=== PATIENT | female | born 1945 | race Two or more races ===

== ENCOUNTER 2017-12-17 07:49 | Outpatient (CLI) | payer OTHER ==
[~2017-12-17 07:49] MED LIST: CLONAZEPAM1 MG PO; DOCUSATE SODIU100 MG PO; NEURONTIN300 MG; PERCOCET 5/3251 TAB PO; PROTONIX40 MG
== END 2017-12-17 07:52 | disposition home or self-care (01) ==
LOC: NUCLEAR 07:49
DX: M19.90 Unspecified osteoarthritis, unspecified site (principal)
CPT/HCPCS: 78306; A9503

== ENCOUNTER 2017-12-17 08:05 | Outpatient (CLI) | payer OTHER | END 2017-12-17 15:59 | disposition home or self-care (01) | LOC: TOM 08:05 | DX: R41.3 Other amnesia (principal); G31.84 Mild cognitive impairment of uncertain or unknown etiology ==

== ENCOUNTER 2018-06-22 09:17 | Outpatient (CLI) | payer OTHER | END 2018-06-22 17:00 | disposition home or self-care (01) | LOC: SONOGRAMA 09:17 → MAMO-SONO 11:15 → SONOGRAMA 17:00 | DX: R42 Dizziness and giddiness (principal); K57.30 Diverticulosis of large intestine without perforation or abscess without bleeding ==

== ENCOUNTER 2018-10-27 08:20 | Outpatient (CLI) | payer OTHER | END 2018-10-27 08:27 | disposition home or self-care (01) | LOC: TOM 08:20 | DX: J37.0 Chronic laryngitis (principal) ==

== ENCOUNTER 2018-12-23 09:28 | Outpatient (CLI) | payer OTHER ==
[2018-12-23] MEDS ORDERED: FLONASE16 GM NASAL (11:18)
== END 2018-12-23 11:21 | disposition home or self-care (01) ==
LOC: OFIC 805 09:28
DX: J31.0 Chronic rhinitis (principal); J37.0 Chronic laryngitis; R49.8 Other voice and resonance disorders; R05 Cough; J32.4 Chronic pansinusitis

== ENCOUNTER → 2019-04-19 | Outpatient (CLI) | payer OTHER ==
[~2019-04-19] MED LIST changes: +FLONASE16 GM NASAL
== END | disposition home or self-care (01) ==
LOC: RAD 08:44 → MAMO-SONO 11:15
DX: G45.8 Other transient cerebral ischemic attacks and related syndromes (principal); I67.89 Other cerebrovascular disease; R41.3 Other amnesia; N60.22 Fibroadenosis of left breast; N60.21 Fibroadenosis of right breast; S59.902A Unspecified injury of left elbow, initial encounter; Z87.898 Personal history of other specified conditions; Z12.31 Encounter for screening mammogram for malignant neoplasm of breast; Z09 Encounter for follow-up examination after completed treatment for conditions other than malignant neoplasm
CPT/HCPCS: 70553; 76641; 77067; 76881; A9579

== ENCOUNTER 2019-07-05 10:22 | Outpatient (CLI) | payer OTHER | END 2019-07-05 11:00 | disposition home or self-care (01) | LOC: NUCLEAR 10:22 | DX: M79.622 Pain in left upper arm (principal); M79.621 Pain in right upper arm ==

== ENCOUNTER → 2019-07-05 | Outpatient (CLI) | payer OTHER | END | disposition home or self-care (01) | LOC: RAD 09:26 | DX: M06.862 Other specified rheumatoid arthritis, left knee (principal) ==

== ENCOUNTER 2019-07-06 09:20 | Outpatient (CLI) | payer OTHER | END 2019-07-06 09:45 | disposition home or self-care (01) | LOC: NUCLEAR 09:20 | DX: I73.9 Peripheral vascular disease, unspecified (principal) ==

== ENCOUNTER 2020-03-21 08:40 | Outpatient (CLI) | payer OTHER | END 2020-03-21 08:46 | disposition home or self-care (01) | LOC: LAB 08:40 | PROVIDERS: ATTEND General Practice | DX: E83.32 Hereditary vitamin D-dependent rickets (type 1) (type 2) (principal); E06.3 Autoimmune thyroiditis; N30.00 Acute cystitis without hematuria; I11.9 Hypertensive heart disease without heart failure; E11.22 Type 2 diabetes mellitus with diabetic chronic kidney disease; Z12.11 Encounter for screening for malignant neoplasm of colon; E11.42 Type 2 diabetes mellitus with diabetic polyneuropathy; E78.2 Mixed hyperlipidemia ==

== ENCOUNTER 2020-04-06 10:17 | Outpatient (CLI) | payer OTHER | END 2020-04-06 10:19 | disposition home or self-care (01) | LOC: TOM 10:17 | PROVIDERS: ATTEND General Practice | DX: K57.30 Diverticulosis of large intestine without perforation or abscess without bleeding (principal) ==

== ENCOUNTER 2020-08-08 15:00 | Outpatient (CLI) | payer OTHER | END 2020-08-08 15:55 | disposition home or self-care (01) | LOC: PPH VACUNA 15:00 | PROVIDERS: ATTEND Emergency Medicine Pediatric Emergency Medicine | DX: Z23 Encounter for immunization (principal) ==

== ENCOUNTER → 2020-08-29 08:00 | Outpatient (CLI) | payer OTHER | END | disposition home or self-care (01) | LOC: PPH VACUNA 08:00 | PROVIDERS: ATTEND Emergency Medicine Pediatric Emergency Medicine | DX: Z23 Encounter for immunization (principal) ==

== ENCOUNTER 2021-01-17 08:46 | Outpatient (CLI) | payer OTHER | END 2021-01-17 08:58 | disposition home or self-care (01) | LOC: RAD 08:46 | PROVIDERS: ATTEND Psychiatry & Neurology Pain Medicine | DX: M19.90 Unspecified osteoarthritis, unspecified site (principal); R25.2 Cramp and spasm; M54.2 Cervicalgia; M25.512 Pain in left shoulder; R06.6 Hiccough ==

== ENCOUNTER → 2021-03-14 08:51 | Outpatient (CLI) | payer OTHER | END | disposition home or self-care (01) | LOC: LAB 08:51 | PROVIDERS: ATTEND Internal Medicine Hematology & Oncology | DX: E03.8 Other specified hypothyroidism (principal); D50.8 Other iron deficiency anemias; R79.89 Other specified abnormal findings of blood chemistry; I10 Essential (primary) hypertension; R74.02 Elevation of levels of lactic acid dehydrogenase [LDH]; K29.60 Other gastritis without bleeding; K76.89 Other specified diseases of liver; D51.1 Vitamin B12 deficiency anemia due to selective vitamin B12 malabsorption with proteinuria; D51.0 Vitamin B12 deficiency anemia due to intrinsic factor deficiency; E06.3 Autoimmune thyroiditis; C56.9 Malignant neoplasm of unspecified ovary; R97.8 Other abnormal tumor markers; R97.1 Elevated cancer antigen 125 [CA 125]; R97.0 Elevated carcinoembryonic antigen [CEA]; D75.89 Other specified diseases of blood and blood-forming organs; F33.8 Other recurrent depressive disorders; K29.40 Chronic atrophic gastritis without bleeding ==

== ENCOUNTER 2021-03-14 09:41 | Outpatient (CLI) | payer OTHER | END 2021-03-14 09:49 | disposition home or self-care (01) | LOC: SONOGRAMA 09:41 → MAMO-SONO 10:30 | PROVIDERS: ATTEND Internal Medicine Hematology & Oncology | DX: D75.89 Other specified diseases of blood and blood-forming organs (principal); F33.8 Other recurrent depressive disorders; K29.40 Chronic atrophic gastritis without bleeding; K29.70 Gastritis, unspecified, without bleeding; E04.2 Nontoxic multinodular goiter ==

== ENCOUNTER 2021-04-12 08:38 | Outpatient (CLI) | payer OTHER | END 2021-04-12 08:47 | disposition home or self-care (01) | LOC: TOM 08:38 | PROVIDERS: ATTEND Psychiatry & Neurology Pain Medicine | DX: K57.90 Diverticulosis of intestine, part unspecified, without perforation or abscess without bleeding (principal); K40.20 Bilateral inguinal hernia, without obstruction or gangrene, not specified as recurrent; K21.00 Gastro-esophageal reflux disease with esophagitis, without bleeding; R10.84 Generalized abdominal pain; R06.6 Hiccough | CPT/HCPCS: 74178; Q9965 ==

== ENCOUNTER 2021-05-01 08:00 | Outpatient (CLI) | payer OTHER | END 2021-05-01 08:30 | disposition home or self-care (01) | LOC: PPH VACUNA 08:00 | PROVIDERS: ATTEND Emergency Medicine Pediatric Emergency Medicine | DX: Z23 Encounter for immunization (principal) ==

== ENCOUNTER 2021-06-06 08:47 | Outpatient (CLI) | payer OTHER | END 2021-06-06 09:01 | disposition home or self-care (01) | LOC: MAMO-SONO 08:47 | PROVIDERS: ATTEND General Practice | DX: N64.4 Mastodynia (principal); N60.29 Fibroadenosis of unspecified breast; Z12.31 Encounter for screening mammogram for malignant neoplasm of breast; Z80.8 Family history of malignant neoplasm of other organs or systems ==

== ENCOUNTER 2021-06-27 08:20 | Outpatient (CLI) | payer OTHER | END 2021-06-27 08:22 | disposition home or self-care (01) | LOC: LAB 08:20 | PROVIDERS: ATTEND Internal Medicine Hematology & Oncology | DX: D50.8 Other iron deficiency anemias (principal); R79.89 Other specified abnormal findings of blood chemistry; I10 Essential (primary) hypertension; R74.02 Elevation of levels of lactic acid dehydrogenase [LDH]; K76.89 Other specified diseases of liver; D63.8 Anemia in other chronic diseases classified elsewhere; D55.0 Anemia due to glucose-6-phosphate dehydrogenase [G6PD] deficiency; D51.8 Other vitamin B12 deficiency anemias; D51.1 Vitamin B12 deficiency anemia due to selective vitamin B12 malabsorption with proteinuria; D51.0 Vitamin B12 deficiency anemia due to intrinsic factor deficiency; E03.8 Other specified hypothyroidism; D75.89 Other specified diseases of blood and blood-forming organs; F33.8 Other recurrent depressive disorders; K29.40 Chronic atrophic gastritis without bleeding; K29.70 Gastritis, unspecified, without bleeding ==

== ENCOUNTER 2021-08-31 08:36 | Outpatient (CLI) | payer OTHER | END 2021-08-31 08:42 | disposition home or self-care (01) | LOC: LAB 08:36 | PROVIDERS: ATTEND General Practice | DX: E83.32 Hereditary vitamin D-dependent rickets (type 1) (type 2) (principal); E06.3 Autoimmune thyroiditis; N30.00 Acute cystitis without hematuria; I11.9 Hypertensive heart disease without heart failure; E11.22 Type 2 diabetes mellitus with diabetic chronic kidney disease; Z12.11 Encounter for screening for malignant neoplasm of colon; E11.42 Type 2 diabetes mellitus with diabetic polyneuropathy; E78.2 Mixed hyperlipidemia ==

== ENCOUNTER 2021-08-31 09:53 | Outpatient (CLI) | payer OTHER | END 2021-08-31 10:01 | disposition home or self-care (01) | LOC: RAD 09:53 | PROVIDERS: ATTEND General Practice | DX: M15.0 Primary generalized (osteo)arthritis (principal); J44.9 Chronic obstructive pulmonary disease, unspecified ==

== ENCOUNTER 2021-12-28 10:02 | Outpatient (CLI) | payer OTHER | END 2021-12-28 10:09 | disposition home or self-care (01) | LOC: LAB 10:02 | PROVIDERS: ATTEND Internal Medicine Hematology & Oncology | DX: D50.8 Other iron deficiency anemias (principal); R79.9 Abnormal finding of blood chemistry, unspecified; I10 Essential (primary) hypertension; R74.02 Elevation of levels of lactic acid dehydrogenase [LDH]; K76.89 Other specified diseases of liver; D51.8 Other vitamin B12 deficiency anemias; E03.8 Other specified hypothyroidism; R97.0 Elevated carcinoembryonic antigen [CEA]; R97.8 Other abnormal tumor markers; D51.0 Vitamin B12 deficiency anemia due to intrinsic factor deficiency; D51.1 Vitamin B12 deficiency anemia due to selective vitamin B12 malabsorption with proteinuria; D75.89 Other specified diseases of blood and blood-forming organs; F33.9 Major depressive disorder, recurrent, unspecified; K29.40 Chronic atrophic gastritis without bleeding; K29.70 Gastritis, unspecified, without bleeding ==

== ENCOUNTER 2022-01-23 05:47 | Day surgery (SDC) | payer OTHER ==
[~2022-01-23 05:47] MED LIST changes: +ADULT LOW DOSE81 M1 PO; +VITAMIN B12
[2022-01-23] MEDS ORDERED: POLY119PG PO (10:20)
[2022-01-23] MEDS ORDERED: ULTRACET PO (10:20)
== END 2022-01-23 13:35 | disposition home or self-care (01) ==
LOC: CIR.AMB 05:47
PROVIDERS: ATTEND Surgery
DX: K40.20 Bilateral inguinal hernia, without obstruction or gangrene, not specified as recurrent (principal); Z20.822 Contact with and (suspected) exposure to COVID-19; G62.9 Polyneuropathy, unspecified; F41.0 Panic disorder [episodic paroxysmal anxiety]; M19.90 Unspecified osteoarthritis, unspecified site; K21.9 Gastro-esophageal reflux disease without esophagitis
CPT/HCPCS: 49650; C1781

== ENCOUNTER 2022-03-06 10:46 | Outpatient (CLI) | payer OTHER ==
[~2022-03-06 10:46] MED LIST changes: +POLY119PG PO; +ULTRACET PO
== END 2022-03-06 10:56 | disposition home or self-care (01) ==
LOC: MRI 10:46
PROVIDERS: ATTEND Psychiatry & Neurology Pain Medicine
DX: M25.561 Pain in right knee (principal); M25.562 Pain in left knee; M54.51 Vertebrogenic low back pain; M51.36 Other intervertebral disc degeneration, lumbar region; M54.10 Radiculopathy, site unspecified
CPT/HCPCS: 72148

== ENCOUNTER 2022-03-22 08:03 | Outpatient (CLI) | payer OTHER | END 2022-03-22 08:05 | disposition home or self-care (01) | LOC: NUCLEAR 08:03 | PROVIDERS: ATTEND Psychiatry & Neurology Pain Medicine | DX: I73.9 Peripheral vascular disease, unspecified (principal); I83.90 Asymptomatic varicose veins of unspecified lower extremity; M79.89 Other specified soft tissue disorders; R25.2 Cramp and spasm ==

== ENCOUNTER 2022-03-25 08:27 | Outpatient (CLI) | payer OTHER | END 2022-03-25 08:28 | disposition home or self-care (01) | LOC: NUCLEAR 08:27 | PROVIDERS: ATTEND Psychiatry & Neurology Pain Medicine | DX: I73.9 Peripheral vascular disease, unspecified (principal); I83.90 Asymptomatic varicose veins of unspecified lower extremity; M79.89 Other specified soft tissue disorders; R25.2 Cramp and spasm ==

== ENCOUNTER 2022-05-02 13:25 | Emergency (ER) | payer OTHER ==
[~2022-05-02] VITALS: Ht 160 cm; Wt 73.9 kg
== END 2022-05-02 17:48 | disposition home or self-care (01) ==
LOC: ER 13:25
DX: S00.83XA Contusion of other part of head, initial encounter (principal); S50.02XA Contusion of left elbow, initial encounter; W18.39XA Other fall on same level, initial encounter; Y93.89 Activity, other specified; Y92.012 Bathroom of single-family (private) house as the place of occurrence of the external cause; Y99.9 Unspecified external cause status; M12.522 Traumatic arthropathy, left elbow; I10 Essential (primary) hypertension

== ENCOUNTER 2022-06-24 08:49 | Outpatient (CLI) | payer OTHER | END 2022-06-24 08:51 | disposition home or self-care (01) | LOC: LAB 08:49 | PROVIDERS: ATTEND Internal Medicine Hematology & Oncology | DX: I11.9 Hypertensive heart disease without heart failure (principal); E06.3 Autoimmune thyroiditis; N30.00 Acute cystitis without hematuria; E78.2 Mixed hyperlipidemia; D50.8 Other iron deficiency anemias; R79.9 Abnormal finding of blood chemistry, unspecified; R74.02 Elevation of levels of lactic acid dehydrogenase [LDH]; K76.89 Other specified diseases of liver; D51.8 Other vitamin B12 deficiency anemias; D51.1 Vitamin B12 deficiency anemia due to selective vitamin B12 malabsorption with proteinuria; D51.0 Vitamin B12 deficiency anemia due to intrinsic factor deficiency; E03.8 Other specified hypothyroidism; R97.0 Elevated carcinoembryonic antigen [CEA]; R97.8 Other abnormal tumor markers; D75.89 Other specified diseases of blood and blood-forming organs; F33.9 Major depressive disorder, recurrent, unspecified; K29.40 Chronic atrophic gastritis without bleeding; K29.70 Gastritis, unspecified, without bleeding ==

== ENCOUNTER → 2022-06-24 | Outpatient (CLI) | payer OTHER | END | disposition home or self-care (01) | LOC: MAMO-SONO 10:17 | PROVIDERS: ATTEND Obstetrics & Gynecology Obstetrics | DX: N64.4 Mastodynia (principal) ==

== ENCOUNTER 2022-07-04 13:11 | Outpatient (CLI) | payer OTHER | END 2022-07-04 13:21 | disposition home or self-care (01) | LOC: PPH VACUNA 13:11 | PROVIDERS: ATTEND Emergency Medicine Pediatric Emergency Medicine | DX: Z23 Encounter for immunization (principal) ==

== ENCOUNTER 2022-08-06 07:09 | Outpatient (CLI) | payer OTHER | END 2022-08-06 07:10 | disposition home or self-care (01) | LOC: NUCLEAR 07:09 | PROVIDERS: ATTEND Internal Medicine Cardiovascular Disease | DX: I25.10 Atherosclerotic heart disease of native coronary artery without angina pectoris (principal) | CPT/HCPCS: 78452; 93017; A9500; J0153 ==

== ENCOUNTER 2022-08-10 15:33 | Emergency (ER) | payer OTHER ==
[~2022-08-10] VITALS: Ht 160 cm; Wt 71.2 kg
== END 2022-08-10 19:47 | disposition home or self-care (01) ==
LOC: ER 15:33
DX: M54.50 Low back pain, unspecified (principal)

== ENCOUNTER → 2022-08-12 | Outpatient (CLI) | payer OTHER | END | disposition home or self-care (01) | LOC: TOM 08:58 | PROVIDERS: ATTEND Urology | DX: R10.12 Left upper quadrant pain (principal); R10.32 Left lower quadrant pain ==

== ENCOUNTER 2022-09-02 09:57 | Outpatient (CLI) | payer OTHER | END 2022-09-02 10:02 | disposition home or self-care (01) | LOC: MRI 09:57 | PROVIDERS: ATTEND General Practice | DX: M51.06 Intervertebral disc disorders with myelopathy, lumbar region (principal) | CPT/HCPCS: 72148 ==

== ENCOUNTER 2022-10-11 07:23 | Outpatient (CLI) | payer OTHER | END 2022-10-11 14:13 | disposition home or self-care (01) | LOC: LAB 07:23 | PROVIDERS: ATTEND General Practice | DX: Z12.11 Encounter for screening for malignant neoplasm of colon (principal); E11.22 Type 2 diabetes mellitus with diabetic chronic kidney disease; I11.9 Hypertensive heart disease without heart failure; E06.3 Autoimmune thyroiditis; N30.00 Acute cystitis without hematuria; E83.32 Hereditary vitamin D-dependent rickets (type 1) (type 2); M81.0 Age-related osteoporosis without current pathological fracture; E78.2 Mixed hyperlipidemia ==

== ENCOUNTER 2022-11-13 09:24 | Outpatient (CLI) | payer OTHER | END 2022-11-13 09:28 | disposition home or self-care (01) | LOC: LAB 09:24 | PROVIDERS: ATTEND Internal Medicine Geriatric Medicine | DX: N30.00 Acute cystitis without hematuria (principal) ==

== ENCOUNTER 2022-12-03 08:26 | Outpatient (CLI) | payer OTHER | END 2022-12-03 09:52 | disposition home or self-care (01) | LOC: MRI 08:26 | PROVIDERS: ATTEND Internal Medicine Geriatric Medicine | DX: R10.9 Unspecified abdominal pain (principal); R10.2 Pelvic and perineal pain; M25.552 Pain in left hip | CPT/HCPCS: 72197; 73502; 74183; Q9965; 72196; 74182 ==

== ENCOUNTER → 2022-12-03 08:52 | Outpatient (CLI) | payer OTHER | END | disposition home or self-care (01) | LOC: LAB 08:52 | PROVIDERS: ATTEND Radiology Diagnostic Radiology | DX: R10.9 Unspecified abdominal pain (principal) ==

== ENCOUNTER 2022-12-27 08:48 | Outpatient (CLI) | payer OTHER | END 2022-12-27 08:53 | disposition home or self-care (01) | LOC: LAB 08:48 | PROVIDERS: ATTEND Internal Medicine Hematology & Oncology | DX: D50.8 Other iron deficiency anemias (principal); R79.9 Abnormal finding of blood chemistry, unspecified; I10 Essential (primary) hypertension; R74.02 Elevation of levels of lactic acid dehydrogenase [LDH]; K76.89 Other specified diseases of liver; D51.1 Vitamin B12 deficiency anemia due to selective vitamin B12 malabsorption with proteinuria; D51.0 Vitamin B12 deficiency anemia due to intrinsic factor deficiency; E03.8 Other specified hypothyroidism; R97.0 Elevated carcinoembryonic antigen [CEA]; R97.8 Other abnormal tumor markers; E55.9 Vitamin D deficiency, unspecified; D75.89 Other specified diseases of blood and blood-forming organs; F33.9 Major depressive disorder, recurrent, unspecified; K29.40 Chronic atrophic gastritis without bleeding; K29.70 Gastritis, unspecified, without bleeding ==

== ENCOUNTER 2023-01-20 09:01 | Outpatient (CLI) | payer OTHER | END 2023-01-20 09:23 | disposition home or self-care (01) | LOC: MRI 09:01 | PROVIDERS: ATTEND Psychiatry & Neurology Pain Medicine | DX: M54.6 Pain in thoracic spine (principal); M54.10 Radiculopathy, site unspecified; M81.0 Age-related osteoporosis without current pathological fracture; R25.2 Cramp and spasm; M50.30 Other cervical disc degeneration, unspecified cervical region | CPT/HCPCS: 72146 ==

== ENCOUNTER 2023-03-06 08:10 | Outpatient (CLI) | payer OTHER | END 2023-03-06 08:20 | disposition home or self-care (01) | LOC: LAB 08:10 | PROVIDERS: ATTEND Anesthesiology | DX: Z01.812 Encounter for preprocedural laboratory examination (principal); S32.002A Unstable burst fracture of unspecified lumbar vertebra, initial encounter for closed fracture; M54.17 Radiculopathy, lumbosacral region; M54.6 Pain in thoracic spine ==

== ENCOUNTER → 2023-06-26 08:24 | Outpatient (CLI) | payer OTHER ==
[2023-06-26 09:27] LABS: HEMATOCRIT 38.3 % (36.0-45.00); HEMOGLOBIN 13.1 g/dL (12.0-15.00); MEAN CELL VOLUME 95.7 fL (80.00-100.00); MEAN CORPUSCULAR HEMOGLOBIN 32.7 pg (27.00-32.0); MEAN CORPUSCULAR HGB CONC 34.2 g/dl (32.0-36.0); PLATELET COUNT 176 K/uL (150-450); RED CELL DISTRIBUTION WIDTH 13.7 % (11.5-14.5)
[2023-06-26 09:50] LABS: % SATURACION 9.7 % (15-50); ALBUMIN 3.6 gm/dL (3.4-5.0); BILIRUBIN TOTAL 0.46 mg/dL (0.3-1.2); CALCIUM 8.6 mg/dL (8.5-10.1); CREATININE SERUM 0.62 mg/dL (0.55-1.02); FERRITIN 217.8 NG/ML (8-252); GFR 93.34; GLOBULINA 3.6 G/DL (2.4-3.5); POTASSIUM 4.08 mEq/L (3.5-5.1); TOTAL PROTEIN 7.2 gm/dL (6.4-8.2); TSH 1.75 uIU/mL (0.358-3.74)
[2023-06-26 10:04] LABS: PH,URINE 6.5 (5.0-8.0); URINE APPEARANCE Clear; URINE BILIRRUBIN Negative (NEGATIVE); URINE BLOOD Negative; URINE COLOR Yellow; URINE GLUCOSE Negative (NEGATIVE); URINE LEUKOCYTE Trace; URINE NITRATE Negative; URINE PROTEIN Negative (NEGATIVE); URINE UROBILINOGEN 0.2 E.U./dl
[2023-06-26 10:05] LABS: URINE EPITHELIAL CELLS 3.5 uL (0.0-38.8); URINE RBC 11.2 uL (0.0-20.8); URINE WBC 2.4 uL (0.0-23.2)
[2023-06-26 10:23] LABS: FOLIC ACID > 20.00 ng/ml (4.78-20)
[2023-06-26 15:24] LABS: MANUAL PLATELET COUNT 254
[2023-06-26 15:26] LABS: PLATELET ESTIMATE NORMAL (NORMAL)
== END | disposition home or self-care (01) ==
LOC: LAB 08:24
PROVIDERS: ATTEND Internal Medicine Hematology & Oncology
DX: D50.8 Other iron deficiency anemias (principal); R79.9 Abnormal finding of blood chemistry, unspecified; I10 Essential (primary) hypertension; R74.02 Elevation of levels of lactic acid dehydrogenase [LDH]; K76.89 Other specified diseases of liver; E55.9 Vitamin D deficiency, unspecified; D51.1 Vitamin B12 deficiency anemia due to selective vitamin B12 malabsorption with proteinuria; D51.0 Vitamin B12 deficiency anemia due to intrinsic factor deficiency; E03.8 Other specified hypothyroidism; R97.0 Elevated carcinoembryonic antigen [CEA]; R97.8 Other abnormal tumor markers; N39.0 Urinary tract infection, site not specified; D75.89 Other specified diseases of blood and blood-forming organs; F33.9 Major depressive disorder, recurrent, unspecified; K29.40 Chronic atrophic gastritis without bleeding; K29.70 Gastritis, unspecified, without bleeding

== ENCOUNTER 2023-07-07 07:03 | Outpatient (CLI) | payer OTHER ==
[2023-07-07 08:26] LABS: ALBUMIN 3.6 gm/dL (3.4-5.0); BILIRUBIN TOTAL 0.37 mg/dL (0.3-1.2); CREATININE SERUM 0.63 mg/dL (0.55-1.02); GFR 91.63; GLOBULINA 3.2 G/DL (2.4-3.5); POTASSIUM 4.16 mEq/L (3.5-5.1); TOTAL PROTEIN 6.8 gm/dL (6.4-8.2)
== END 2023-07-07 07:10 | disposition home or self-care (01) ==
LOC: LAB 07:03
PROVIDERS: ATTEND Internal Medicine Rheumatology
DX: M81.0 Age-related osteoporosis without current pathological fracture (principal)

== ENCOUNTER 2023-07-08 08:06 | Outpatient (CLI) | payer OTHER ==
[2023-07-08 08:37] LABS: URINE APPEARANCE Clear; URINE BILIRRUBIN Negative (NEGATIVE); URINE BLOOD Negative; URINE COLOR Yellow; URINE GLUCOSE Negative (NEGATIVE); URINE LEUKOCYTE Negative; URINE NITRATE Negative; URINE PROTEIN Negative (NEGATIVE); URINE UROBILINOGEN 0.2 E.U./dl
[2023-07-08 08:41] LABS: URINE BACTERIA 6.2 uL (0.0-1933); URINE EPITHELIAL CELLS 3.6 uL (0.0-38.8); URINE WBC 3.5 uL (0.0-23.2)
[2023-07-08 08:48] LABS: ob NEGATIVE (NEGATIVE)
[2023-07-08 09:31] LABS: HEMATOCRIT 37.2 % (36.0-45.00); HEMOGLOBIN 12.6 g/dL (12.0-15.00); MEAN CORPUSCULAR HEMOGLOBIN 32.5 pg (27.00-32.0); MEAN CORPUSCULAR HGB CONC 33.9 g/dl (32.0-36.0); PLATELET COUNT 264 K/uL (150-450); RED BLOOD COUNT 3.87 M/uL (4.00-6.00); RED CELL DISTRIBUTION WIDTH 14.1 % (11.5-14.5)
[2023-07-08 09:57] LABS: CALCIUM 8.8 mg/dL (8.5-10.1); CREATININE SERUM 0.59 mg/dL (0.55-1.02); GFR 98.83; POTASSIUM 4.18 mEq/L (3.5-5.1); TSH 2.34 uIU/mL (0.358-3.74)
== END 2023-07-08 08:12 | disposition home or self-care (01) ==
LOC: LAB 08:06
PROVIDERS: ATTEND Internal Medicine Hematology & Oncology
DX: D51.1 Vitamin B12 deficiency anemia due to selective vitamin B12 malabsorption with proteinuria (principal); D51.0 Vitamin B12 deficiency anemia due to intrinsic factor deficiency; D75.89 Other specified diseases of blood and blood-forming organs; F33.9 Major depressive disorder, recurrent, unspecified; K29.40 Chronic atrophic gastritis without bleeding; K29.70 Gastritis, unspecified, without bleeding; R19.5 Other fecal abnormalities

== ENCOUNTER 2023-07-08 08:43 | Outpatient (CLI) | payer OTHER | END 2023-07-08 09:01 | disposition home or self-care (01) | LOC: MAMO-SONO 08:43 | PROVIDERS: ATTEND Internal Medicine | DX: N64.4 Mastodynia (principal); R92.8 Other abnormal and inconclusive findings on diagnostic imaging of breast; M54.59 Other low back pain; M54.6 Pain in thoracic spine; Z12.31 Encounter for screening mammogram for malignant neoplasm of breast | CPT/HCPCS: 72146 ==

== ENCOUNTER 2023-07-10 07:52 | Outpatient (CLI) | payer OTHER | END 2023-07-10 08:07 | disposition home or self-care (01) | LOC: TOM 07:52 | PROVIDERS: ATTEND Internal Medicine Hematology & Oncology | DX: R10.12 Left upper quadrant pain (principal); D51.1 Vitamin B12 deficiency anemia due to selective vitamin B12 malabsorption with proteinuria; D50.1 Sideropenic dysphagia; D75.89 Other specified diseases of blood and blood-forming organs; F33.9 Major depressive disorder, recurrent, unspecified; K29.40 Chronic atrophic gastritis without bleeding; K29.70 Gastritis, unspecified, without bleeding | CPT/HCPCS: 74177; Q9965 ==

== ENCOUNTER → 2023-08-08 06:29 | Outpatient (CLI) | payer OTHER ==
[2023-08-08 07:19] LABS: % SATURACION 37.5 % (15-50); ALBUMIN 3.6 gm/dL (3.4-5.0); BILIRUBIN TOTAL 0.41 mg/dL (0.3-1.2); CALCIUM 9.3 mg/dL (8.5-10.1); CREATININE SERUM 0.59 mg/dL (0.55-1.02); FERRITIN 95.8 NG/ML (8-252); GFR 98.83; GLOBULINA 2.9 G/DL (2.4-3.5); POTASSIUM 4.03 mEq/L (3.5-5.1); TOTAL PROTEIN 6.5 gm/dL (6.4-8.2)
[2023-08-08 07:23] LABS: HEMATOCRIT 40.3 % (36.0-45.00); HEMOGLOBIN 13.6 g/dL (12.0-15.00); MEAN CELL VOLUME 96.3 fL (80.00-100.00); MEAN CORPUSCULAR HEMOGLOBIN 32.5 pg (27.00-32.0); MEAN CORPUSCULAR HGB CONC 33.7 g/dl (32.0-36.0); PLATELET COUNT 184 K/uL (150-450); RED BLOOD COUNT 4.19 M/uL (4.00-6.00); RED CELL DISTRIBUTION WIDTH 14.2 % (11.5-14.5)
[2023-08-08 08:23] LABS: MANUAL PLATELET COUNT 336
[2023-08-08 08:25] LABS: PLATELET ESTIMATE NORMAL (NORMAL)
== END | disposition home or self-care (01) ==
LOC: LAB 06:29
PROVIDERS: ATTEND Internal Medicine Hematology & Oncology
DX: D50.8 Other iron deficiency anemias (principal); R79.9 Abnormal finding of blood chemistry, unspecified; I10 Essential (primary) hypertension; R74.02 Elevation of levels of lactic acid dehydrogenase [LDH]; K76.89 Other specified diseases of liver; D51.1 Vitamin B12 deficiency anemia due to selective vitamin B12 malabsorption with proteinuria; D51.0 Vitamin B12 deficiency anemia due to intrinsic factor deficiency; D75.89 Other specified diseases of blood and blood-forming organs; F33.9 Major depressive disorder, recurrent, unspecified; K29.40 Chronic atrophic gastritis without bleeding; K29.70 Gastritis, unspecified, without bleeding

== ENCOUNTER → 2023-08-22 08:00 | Outpatient (CLI) | payer OTHER ==
[2023-08-22 09:41] LABS: URINE BACTERIA 11.3 uL (0.0-1933); URINE EPITHELIAL CELLS 1.5 uL (0.0-38.8); URINE RBC 2.5 uL (0.0-20.8)
[2023-08-22 09:42] LABS: PH,URINE 6.5 (5.0-8.0); URINE APPEARANCE Clear; URINE BILIRRUBIN Negative (NEGATIVE); URINE BLOOD Negative; URINE COLOR Yellow; URINE GLUCOSE Negative (NEGATIVE); URINE LEUKOCYTE Negative; URINE NITRATE Negative; URINE PROTEIN Negative (NEGATIVE); URINE UROBILINOGEN 0.2 E.U./dl
[2023-08-22 09:46] LABS: HEMATOCRIT 40.8 % (36.0-45.00); HEMOGLOBIN 13.8 g/dL (12.0-15.00); MEAN CELL VOLUME 95.3 fL (80.00-100.00); MEAN CORPUSCULAR HEMOGLOBIN 32.2 pg (27.00-32.0); MEAN CORPUSCULAR HGB CONC 33.8 g/dl (32.0-36.0); PLATELET COUNT 211 K/uL (150-450); RED BLOOD COUNT 4.28 M/uL (4.00-6.00); RED CELL DISTRIBUTION WIDTH 14.5 % (11.5-14.5)
[2023-08-22 10:00] LABS: INR 0.97; PROTHROMBIN TIME 10.2 SECONDS (9.0-11.5)
[2023-08-22 10:08] LABS: ALBUMIN 3.8 gm/dL (3.4-5.0); BILIRUBIN TOTAL 0.55 mg/dL (0.3-1.2); CALCIUM 9.4 mg/dL (8.5-10.1); CREATININE SERUM 0.61 mg/dL (0.55-1.02); GFR 95.1; GLOBULINA 3.3 G/DL (2.4-3.5); POTASSIUM 4.42 mEq/L (3.5-5.1); TOTAL PROTEIN 7.1 gm/dL (6.4-8.2)
== END | disposition home or self-care (01) ==
LOC: LAB 08:00
PROVIDERS: ATTEND Pain Medicine Interventional Pain Medicine
DX: M54.6 Pain in thoracic spine (principal); S53.20XA Traumatic rupture of unspecified radial collateral ligament, initial encounter; M54.59 Other low back pain

== ENCOUNTER 2024-03-02 12:23 | Outpatient (CLI) | payer OTHER | END 2024-03-02 12:52 | disposition home or self-care (01) | LOC: SONOGRAMA 12:23 | PROVIDERS: ATTEND Internal Medicine | DX: M75.80 Other shoulder lesions, unspecified shoulder (principal); M75.81 Other shoulder lesions, right shoulder; M75.82 Other shoulder lesions, left shoulder ==

== ENCOUNTER 2024-04-13 08:43 | Outpatient (CLI) | payer OTHER | END 2024-04-13 09:11 | disposition home or self-care (01) | LOC: TOM 08:43 | PROVIDERS: ATTEND Internal Medicine Cardiovascular Disease | DX: N20.1 Calculus of ureter (principal); M54.50 Low back pain, unspecified ==

== ENCOUNTER 2024-08-04 11:14 | Outpatient (CLI) | payer OTHER | END 2024-08-04 11:21 | disposition home or self-care (01) | LOC: MAMO-SONO 11:14 | PROVIDERS: ATTEND Internal Medicine Hematology & Oncology | DX: N64.4 Mastodynia (principal); Z12.31 Encounter for screening mammogram for malignant neoplasm of breast; D51.1 Vitamin B12 deficiency anemia due to selective vitamin B12 malabsorption with proteinuria; D50.8 Other iron deficiency anemias; D51.0 Vitamin B12 deficiency anemia due to intrinsic factor deficiency; D75.89 Other specified diseases of blood and blood-forming organs; F33.9 Major depressive disorder, recurrent, unspecified; K29.40 Chronic atrophic gastritis without bleeding; K29.70 Gastritis, unspecified, without bleeding ==

== ENCOUNTER 2024-09-13 07:29 | Outpatient (CLI) | payer OTHER | END 2024-09-13 07:34 | disposition home or self-care (01) | LOC: TOM 07:29 | PROVIDERS: ATTEND Anesthesiology | DX: M16.9 Osteoarthritis of hip, unspecified (principal); M25.511 Pain in right shoulder | CPT/HCPCS: 72194; 76881; Q9965 ==

== ENCOUNTER 2024-10-15 08:34 | Outpatient (CLI) | payer OTHER | END 2024-10-15 08:41 | disposition home or self-care (01) | LOC: MRI 08:34 | PROVIDERS: ATTEND Psychiatry & Neurology Pain Medicine | DX: R41.3 Other amnesia (principal) | CPT/HCPCS: 70553; Q9965 ==

== ENCOUNTER 2024-12-03 07:19 | Outpatient (CLI) | payer OTHER | END 2024-12-03 07:21 | disposition home or self-care (01) | LOC: SONOGRAMA 07:19 | PROVIDERS: ATTEND Internal Medicine Gastroenterology | DX: R10.13 Epigastric pain (principal) ==

== ENCOUNTER 2025-03-04 07:06 | Outpatient (CLI) | payer OTHER | END 2025-03-04 07:08 | disposition home or self-care (01) | LOC: MRI 07:06 | PROVIDERS: ATTEND Internal Medicine Gastroenterology | DX: R10.13 Epigastric pain (principal); R93.3 Abnormal findings on diagnostic imaging of other parts of digestive tract; E22.1 Hyperprolactinemia; R57.9 Shock, unspecified | CPT/HCPCS: 70553; 74181; Q9965; 74183 ==

== ENCOUNTER 2025-03-04 07:37 | Outpatient (CLI) | payer OTHER ==
[2025-03-04 08:27] LABS: CREATININE SERUM 0.74 mg/dL (0.55-1.02)
== END 2025-03-04 07:38 | disposition home or self-care (01) ==
LOC: LAB 07:37
PROVIDERS: ATTEND Internal Medicine Gastroenterology
DX: E22.1 Hyperprolactinemia (principal)